=== PATIENT | female | born 1995 | race Hispanic/Latino ===

== ENCOUNTER 2021-07-30 23:30 | Emergency (ER) | payer OTHER ==
[2021-07-30 23:36] VITALS: BP 130/88
--- NOTE | 2021-07-31 01:21 | Emergency Department Report ---
ED Abdominal Pain HPI - General Chief Complaint: Wound/Laceration Stated Complaint: ABD PAIN Source: patient Mode of arrival: Ambulatory Limitations: No Limitations - History of Present Illness Initial Comments: Patient is a A0 two 26-year-old female who is approximately 20 weeks gestation who presented to the ED with swelling mass in the umbilical area with pain for the last 2 weeks. Patient states that the pain is worsened especially in the last 3 days as a result of heavy lifting. Patient denies vaginal bleeding, nausea, vomiting, fever, chills, diarrhea, dizziness, syncope, chest pain or shortness of breath, back pain or traumatic injury. MD Complaint: abdominal pain (Umbilical ) -: Sudden, week(s) (2) Location: periumbilical Radiation: none Migration to: periumbilical Severity: mild Severity scale (0 -10): 3 Quality: cramping, aching, dull Consistency: constant Improves With: rest Worsens With: movement Associated Symptoms: denies other symptoms. denies: nausea, vomiting, diarrhea, fever, chills, dysuria, hematemesis, hematochezia, melena, hematuria, anorexia, syncope - Related Data Previous Rx's Medication Instructions Recorded Last Taken Type Acetaminophen [Tylenol] 500 mg PO Q6HR PRN #30 tablet 07/31/21 Unknown Rx ED Review of Systems ROS: Stated complaint: ABD PAIN Other details as noted in HPI Constitutional: denies: chills, fever Eyes: denies: eye pain, eye discharge, vision change ENT: denies: ear pain, throat pain Respiratory: denies: cough, shortness of breath, wheezing Cardiovascular: denies: chest pain, palpitations Endocrine: no symptoms reported Gastrointestinal: abdominal pain (Umbilical). denies: nausea, vomiting, diarrhea Genitourinary: denies: urgency, dysuria, discharge Musculoskeletal: denies: back pain, joint swelling, arthralgia Skin: denies: rash, lesions Neurological: denies: headache, weakness, paresthesias Psychiatric: denies: anxiety, depression Hematological/Lymphatic: denies: easy bleeding, easy bruising ED Past Medical Hx - Past Medical History Previous Medical History?: No - Surgical History Past Surgical History?: No - Medications Home Medications: Home Medications Medication Instructions Recorded Confirmed Last Taken Type Acetaminophen [Tylenol] 500 mg PO Q6HR PRN #30 tablet 07/31/21 Unknown Rx ED Physical Exam - General Limitations: No Limitations General appearance: alert, in no apparent distress - Head Head exam: Present: atraumatic, normocephalic, normal inspection - Eye Eye exam: Present: normal appearance, PERRL, EOMI Pupils: Present: normal accommodation - ENT ENT exam: Present: normal exam, normal orophraynx, mucous membranes moist, TM's normal bilaterally, normal external ear exam - Neck Neck exam: Present: normal inspection, full ROM - Respiratory Respiratory exam: Present: normal lung sounds bilaterally. Absent: respiratory distress, wheezes, chest wall tenderness, accessory muscle use, decreased breath sounds - Cardiovascular Cardiovascular Exam: Present: regular rate, normal rhythm, normal heart sounds. Absent: systolic murmur, diastolic murmur, rubs, gallop - GI/Abdominal GI/Abdominal exam: Present: soft, tenderness (Palpable mildly tender small reducible umbilical hernia), normal bowel sounds. Absent: guarding, rebound, hyperactive bowel sounds, hypoactive bowel sounds, organomegaly - Extremities Exam Extremities exam: Present: normal inspection, full ROM, normal capillary refill - Back Exam Back exam: Present: normal inspection, full ROM. Absent: tenderness, CVA tenderness (R), CVA tenderness (L), muscle spasm, paraspinal tenderness, vertebral tenderness - Neurological Exam Neurological exam: Present: alert, oriented X3, CN II-XII intact, normal gait, reflexes normal - Psychiatric Psychiatric exam: Present: normal affect, normal mood - Skin Skin exam: Present: warm, dry, intact, normal color. Absent: rash ED Course Vital Signs 07/30/21 23:32 Temperature 98.8 F Pulse Rate 87 Respiratory 16 Rate Blood Pressure 130/88 [Left] O2 Sat by Pulse 99 Oximetry ED Medical Decision Making - Medical Decision Making This is a A0 two 26-year-old female who is approximately 20 weeks gestation who presented to the ED with swelling mass in the umbilical area with pain for the last 2 weeks. Patient states that the pain is worsened especially in the last 3 days as a result of heavy lifting. In the ED, patient is alert and oriented x3 and is not in any distress. Patient is hemodynamically stable. Physical exam is remarkable for mildly tender umbilical hernia which is reducible. Patient being approximately 20 weeks gestation, was advised to minimize heavy lifting in order to minimize the pain. Patient was advised to take Tylenol as needed for pain. Patient was advised to follow-up with TECHNICAL DATA ANALYST physician in 5 to 7 days for reevaluation or return to the ED immediately if symptoms get worse. - Differential Diagnosis Umbilical hernia; abdominal pain; muscle strain Critical care attestation.: If time is entered above; I have spent that time in minutes in the direct care of this critically ill patient, excluding procedure time. ED Disposition Clinical Impression: Reducible umbilical hernia Abdominal pain Qualifiers: Abdominal location: periumbilical Qualified Code(s): R10.33 - Periumbilical pain Disposition: HOME / SELF CARE / HOMELESS Is pt being admited?: No Does the pt Need Aspirin: No Condition: Stable Instructions: Hernia, Adult, [id number], Abdominal Pain During , [id number] Additional Instructions: Your symptoms are likely due to the uncomplicated umbilical hernia which is palpable on exam. Therefore minimize heavy lifting or any physically straining activities in order to control her pain. Take Tylenol also if pain gets worse. Otherwise follow-up with your TECHNICAL DATA ANALYST physician in 5 to 7 days for reevaluation or return to the ED immediately if symptoms get worse. Prescriptions: Acetaminophen [Tylenol] 500 mg PO Q6HR PRN #30 tablet PRN Reason: Pain , Severe (7-10) Referrals: KATIANA SMITH MD [Staff Physician] - 3-5 Days Time of Disposition: 01:24 Print Language: TURKISH
== END 2021-07-31 02:05 | disposition home or self-care (01) ==
LOC: ED 23:30
DX: O26.892 Other specified pregnancy related conditions, second trimester (principal); K42.9 Umbilical hernia without obstruction or gangrene; Z3A.20 20 weeks gestation of pregnancy
CPT/HCPCS: 99282

== ENCOUNTER 2021-12-06 11:57 | Outpatient (CLI) | payer MEDICAID ==
[2021-12-06 13:29] LABS: Basophils % (Auto) 0.4 % (0.0-1.8); Eosinophils # (Auto) 0.2 K/mm3 (0.0-0.4); Eosinophils % (Auto) 1.8 % (0.0-4.3); Hematocrit 35.3 % (30.3-42.9); Hemoglobin 11.6 gm/dl (10.1-14.3); Lymphocytes # (Auto) 2.3 K/mm3 (1.2-5.4); Lymphocytes % (Auto) 19.9 % (13.4-35.0); Mean Corpuscular HGB Conc 33 % (30-34); Mean Corpuscular Volume 91 fl (79-97); Monocytes # (Auto) 0.7 K/mm3 (0.0-0.8); Platelet Count 242 K/mm3 (140-440); Red Blood Count 3.91 M/mm3 (3.65-5.03); Red Cell Distribution Width 13.7 % (13.2-15.2)
[2021-12-06 13:40] LABS: Alanine Aminotransferase 13 units/L (7-56); Albumin 3.1 g/dL (3.9-5); Blood Urea Nitrogen 8 mg/dL (7-17); Calcium 7.8 mg/dL (8.4-10.2); Hemolysis Index 20; Uric Acid 4.5 mg/dL (3.5-7.6)
[2021-12-06 13:41] LABS: BUN/Creatinine Ratio 16
[2021-12-06 14:50] VITALS: BP 119/76
--- NOTE | 2021-12-06 15:07 | Ultrasound Report ---
ULTRASOUND OBSTETRIC LIMITED ULTRASOUND BIOPHYSICAL PROFILE INDICATION / CLINICAL INFORMATION: Decreased FM and elevated B/P. Clinical Gestational Age (GA): 38.3 weeks.days COMPARISON: None available. FINDINGS: BREATHING MOVEMENT = 2 GROSS BODY MOVEMENT = 2 TONE = 2 QUALITATIVE AMNIOTIC FLUID VOLUME = 2 TOTAL BIOPHYSICAL SCORE = 8/8 HEART RATE (beats per minute): 129 through 170. AMNIOTIC FLUID INDEX (cm) = 8.7 cm (normal = 7-24 cm) PRESENTATION: Cephalic. ADDITIONAL FINDINGS: None. IMPRESSION: 1. Biophysical Score = 8/8 2. RUBEN 8.7 cm. Signer Name: Kevin Liu MD Signed: 12/06/2021 3:03 PM Workstation Name: [id number]
== END 2021-12-06 15:04 | disposition home or self-care (01) ==
LOC: TRG 11:57 → APU 11:58 → TRG 15:04
PROVIDERS: ATTEND Obstetrics & Gynecology
DX: O36.8130 Decreased fetal movements, third trimester, not applicable or unspecified (principal); Z3A.38 38 weeks gestation of pregnancy
CPT/HCPCS: 36415; 59025; 76815; 76819; 80053; 84550; 85025

== ENCOUNTER 2021-12-11 14:20 | Inpatient (IN) | payer MEDICAID ==
[2021-12-11] MEDS ORDERED: CARBOPROST TROMETHAMINE 250 MCG/1 ML INJ IM PRN (19:13)
[2021-12-11] MEDS ORDERED: OXYTOCIN 10 UNIT/1 ML INJ IM PRN (19:13)
[2021-12-11] MEDS ORDERED: TERBUTALINE 1 MG/1 ML INJ SUB-Q PRN (19:13)
[2021-12-11] MEDS ORDERED: miSOPROStol 200 MCG TAB PR PRN (19:13)
[2021-12-11] MEDS ORDERED: MINERAL OIL 30 ML ORAL LIQD PO PRN (19:13)
[2021-12-11] MEDS ORDERED: LIDOCAINE (2%) 20 MG/1 ML VIAL 20 ML MDV INFILTRATI ONE (19:13)
[2021-12-11] MEDS ORDERED: ACETAMINOPHEN 325 MG TAB PO PRN (19:13)
[2021-12-11] MEDS ORDERED: fentaNYL 100 MCG/2 ML INJ IV PRN (19:13)
[2021-12-11] MEDS ORDERED: LOPERAMIDE 2 MG CAP PO PRN (19:13)
[2021-12-11] MEDS ORDERED: METHYLERGONOVINE MALEATE 0.2 MG/ML VIAL IM PRN (19:13)
[2021-12-11] MEDS ORDERED: BUTORPHANOL 2 MG/1 ML INJ IV PRN (19:13)
[2021-12-11] MEDS ORDERED: ePHEDrine SULFATE 50 MG/1 ML INJ IV PRN (19:13)
--- NOTE | 2021-12-11 19:28 | History and Physical Report ---
History of Present Illness Date of examination: 12/11/21 Date of admission: 12/11/21 14:28 Chief complaint: Decreased movements. History of present illness: . Vaginal delivery x 1. 39+1 wks. HOSSEIN 12/17/21. Past History Past Medical History: no pertinent history - Obstetrical History Expected Date of Delivery: 12/17/21 Actual Gestation: 39 Week(s) 1 Day(s) : 2 Para: 1 Medications and Allergies Allergies Allergy/AdvReac Type Severity Reaction Status Date / Time No Known Allergies Allergy Verified 12/06/21 12:21 Home Medications Medication Instructions Recorded Confirmed Last Taken Type Acetaminophen [Tylenol] 500 mg PO Q6HR PRN #30 tablet 07/31/21 Unknown Rx Active Meds: Active Medications Acetaminophen (Acetaminophen 325 Mg Tab) 650 mg PO Q4H PRN PRN Reason: Pain, Mild (1-3) Butorphanol Tartrate (Butorphanol 2 Mg/1 Ml Inj) 1 mg IV Q2H PRN PRN Reason: Pain, Moderate(4-6) LABOR PAIN Carboprost Tromethamine (Carboprost Tromethamine 250 Mcg/1 Ml Inj) 250 mcg IM ONCE PRN PRN Reason: Uterine Bleeding Ephedrine Sulfate (Ephedrine Sulfate 50 Mg/1 Ml Inj) 10 mg IV Q2M PRN PRN Reason: Hypotension Fentanyl (Fentanyl 100 Mcg/2 Ml Inj) 100 mcg IV Q2H PRN PRN Reason: Pain,Severe (7-10) LABOR PAIN Oxytocin/Sodium Chloride (Pitocin/Ns 30 Unit/500ml) 30 units in 500 mls @ 2 mls/hr IV TITR KARINA; Protocol Lactated Ringer's (Lactated Ringers) 1,000 mls @ 125 mls/hr IV DIRECT KARINA Oxytocin/Sodium Chloride (Pitocin/Ns 30 Unit/500ml) 30 units in 500 mls @ 40 mls/hr IV TITR KARINA; Protocol Lidocaine (Lidocaine (2%) 20 Mg/1 Ml Vial 20 Ml Mdv) 20 ml INFILTRATI ONCE ONE Stop: 12/11/21 19:14 Loperamide HCl (Loperamide 2 Mg Cap) 2 mg PO ONCE PRN PRN Reason: give with Hemabate Methylergonovine Maleate (Methylergonovine Maleate 0.2 Mg/Ml Vial) 0.2 mg IM ONCE PRN PRN Reason: Uterine Bleeding Mineral Oil (Mineral Oil 30 Ml Oral Liqd) 30 ml PO QHS PRN PRN Reason: Constipation Misoprostol (Misoprostol 200 Mcg Tab) 800 mcg OR ONCE PRN PRN Reason: Uterine Bleeding Oxytocin (Oxytocin 10 Unit/1 Ml Inj) 10 unit IM ONCE PRN PRN Reason: Uterine Bleeding Terbutaline Sulfate (Terbutaline 1 Mg/1 Ml Inj) 0.25 mg SUB-Q ONCE PRN PRN Reason: Hyperstimulation/Hypertonicity Review of Systems All systems: negative - Vital Signs Vital signs: Vital Signs Pulse Pulse Ox 113 H 98 12/11/21 14:43 12/11/21 14:43 Temp Pulse Resp BP Pulse Ox 98.2 F 82 18 125/83 99 12/11/21 15:18 12/11/21 19:23 12/11/21 15:18 12/11/21 15:18 12/11/21 19:23 - Physical Exam Breasts: Positive: deferred Cardiovascular: Normal S1, Normal S2 Lungs: Positive: Normal air movement Abdomen: Positive: soft, distention, normal bowel sounds Genitourinary (Female): Positive: normal external genitalia, normal perenium Vulva: both: normal Vagina: Positive: normal moisture. Negative: discharge Cervix: Negative: lesion, discharge Uterus: Positive: enlarged, normal contour Anus/Rectum: Positive: normal perianal skin, heme negative. Negative: rectal mass, hemorrhoids Extremities: Positive: normal Deep Tendon Reflex Grade: Normal +2 - Obstetrical FHR: auscultation normal Cervical Dilatation: 2.5 Cervical Effacement Percentage: 80 (Rectal contents impede exam.) station: 0-1 Uterine Contraction Pattern: Absent Results All other labs normal. Assessment and Plan - Patient Problems (1) with 39 completed weeks gestation Current Visit: Yes Status: Acute (2) Decreased fetus movements affecting management of mother in third trimester Current Visit: Yes Status: Acute Qualifiers: Fetus number: single or unspecified fetus Qualified Code(s): O36.8130 - Decreased movements, third trimester, not applicable or unspecified Plan to address problem: Admit for observation and induction of labor.
[2021-12-11 19:30] LABS: Hematocrit 34.7 % (30.3-42.9); Hemoglobin 11.7 gm/dl (10.1-14.3); Mean Corpuscular HGB Conc 34 % (30-34); Mean Corpuscular Volume 91 fl (79-97); Platelet Count 224 K/mm3 (140-440); Red Blood Count 3.84 M/mm3 (3.65-5.03); Red Cell Distribution Width 13.8 % (13.2-15.2)
[2021-12-11] MEDS ORDERED: OXYTOCIN DRIP 30 UNITS/500 ML BAG IV SCH ×2 (20:00)
[2021-12-11] MEDS: LACTATED RINGERS 1,000 ML IV SCH ×2 (21:53→23:03)
[2021-12-12] MEDS: LACTATED RINGERS 1,000 ML IV SCH (09:32)
--- NOTE | 2021-12-12 10:17 | Anesthesia Consultation ---
Anesthesia Consult and Med Hx Date of service: 12/12/21 - Airway Anesthetic Teeth Evaluation: Good ROM Head & Neck: Adequate Mental/Hyoid Distance: Adequate Mallampati Class: Class II Intubation Access Assessment: Probably Good - Pulmonary Exam CTA: Yes - Cardiac Exam Cardiac Exam: RRR - Pre-Operative Health Status ASA Pre-Surgery Classification: ASA2 Proposed Anesthetic Plan: Epidural - Pulmonary Hx Asthma: No COPD: No Hx Pneumonia: No - Cardiovascular System Hx Hypertension: No - Central Nervous System Hx Seizures: No Hx Psychiatric Problems: No - Endocrine Hx Renal Disease: No Hx End Stage Renal Disease: No Hx Hypothyroidism: No Hx Hyperthyroidism: No - Hematic Hx Anemia: No Hx Sickle Cell Disease: No - Other Systems Hx Alcohol Use: No
[2021-12-12] MEDS ORDERED: NALOXONE 2 MG/2 ML INJ IV PRN (10:30)
[2021-12-12] MEDS ORDERED: ePHEDrine SULFATE 50 MG/1 ML INJ IV PRN (10:30)
[2021-12-12] MEDS ORDERED: fentaNYL-BUPIV 2 MCG/ML-0.125% 200 MCG/100 ML BAG EPIDURAL SCH (11:00)
--- NOTE | 2021-12-12 12:07 | Event Note ---
Date: 12/12/21 Stable. 3-4 cm dilated, 80%, 0-1station. ARM done, clear fluid. IUPC placed.
[2021-12-12] MEDS ORDERED: BUPIVACAINE/PF (0.25%) 2.5 MG/ML 10 ML VIAL INFILTRATI ONE (13:32)
[2021-12-12] MEDS ORDERED: LANOLIN/ZINC/DIMETHICONE (LANSINOH) 7 GM TP PRN (16:28)
[2021-12-12] MEDS ORDERED: PROMETHAZINE 25 MG TAB PO PRN ×2 (16:28→16:34)
[2021-12-12] MEDS ORDERED: ONDANSETRON 4 MG/2 ML INJ IV PRN ×2 (16:28→16:34)
[2021-12-12] MEDS ORDERED: MAGNESIUM HYDROXIDE (MOM) ORAL LIQD UDC PO PRN ×2 (16:28→16:34)
[2021-12-12] MEDS ORDERED: PROMETHAZINE 25 MG RECT SUPP PR PRN ×2 (16:28→16:34)
[2021-12-12] MEDS ORDERED: KETOROLAC 30 MG/1 ML INJ IV PRN ×2 (16:28→16:34)
[2021-12-12] MEDS ORDERED: diphenhydrAMINE 25 MG CAP PO PRN ×2 (16:34→17:00)
[2021-12-12] MEDS ORDERED: ACETAMINOPHEN 325 MG TAB PO PRN ×2 (16:34→17:00)
[2021-12-12] MEDS ORDERED: HYDROcodone/ACETAMINOPHEN 5-325 MG TAB PO PRN (16:34)
--- NOTE | 2021-12-12 16:44 | Procedure Note ---
OB Delivery Note - Delivery Date of Delivery: 12/12/21 Surgeon: NIMCO LANDEROS Estimated blood loss: 200cc - Vaginal Delivery presentation: vertex Delivery position: OA Intrapartum events: none Delivery induction: oxytocin Delivery augmentation: rupture of membranes, pitocin Delivery monitor: external FHT, external uterine, internal FHT Route of delivery: Delivery placenta: spontaneous Delivery cord: 3 umbilical vessels Episiotomy: none Delivery laceration: none Anesthesia: epidural - Infant A at 1 minute: 8 at 5 minutes: 9 (7 lbs 9oz.)
[2021-12-12] MEDS ORDERED: WITCH HAZEL/ GLYCERIN PAD TP PRN (17:00)
[2021-12-12] MEDS ORDERED: IBUPROFEN 800 MG TAB PO SCH (17:00)
[2021-12-12] MEDS: HYDROcodone/ACETAMINOPHEN 5-325 MG TAB PO PRN (21:28)
[2021-12-12] MEDS: DOCUSATE SODIUM 100 MG CAP PO SCH (21:28)
[2021-12-12] MEDS: IBUPROFEN 800 MG TAB PO SCH (22:11)
[2021-12-13] MEDS: HYDROcodone/ACETAMINOPHEN 5-325 MG TAB PO PRN ×3 (02:15→16:55)
[2021-12-13 04:07] LABS: Hematocrit 31.6 % (30.3-42.9); Hemoglobin 10.4 gm/dl (10.1-14.3)
[2021-12-13] MEDS: IBUPROFEN 800 MG TAB PO SCH ×2 (05:50→12:23)
--- NOTE | 2021-12-13 09:20 | Progress Note ---
Assessment and Plan - Patient Problems (1) with 39 completed weeks gestation Current Visit: Yes Status: Resolved (2) Decreased fetus movements affecting management of mother in third trimester Current Visit: Yes Status: Resolved Qualifiers: Fetus number: single or unspecified fetus Qualified Code(s): O36.8130 - Decreased movements, third trimester, not applicable or unspecified (3) Status post vaginal delivery Current Visit: Yes Status: Acute Plan to address problem: Stable and would like to go home bernice. Subjective - Subjective Date of service: 12/13/21 Principal diagnosis: Status post vaginal delivery day 1. Interval history: . Vaginal delivery x 1. 39+1 wks. HOSSEIN 12/17/21. Delivered 12/12/2021. . Patient reports: appetite normal, voiding normally, pain well controlled, ambulating normally [place]: doing well Objective - Vital Signs Latest vital signs: Vital Signs Temp Pulse Resp BP Pulse Ox Pulse Ox 12/13/21 08:23 97 12/13/21 07:39 97.6 F 76 16 107/57 98 12/13/21 06:48 18 12/13/21 05:50 18 12/13/21 03:13 18 12/13/21 02:15 18 12/12/21 23:46 98.4 F 86 20 114/61 97 12/12/21 23:11 18 12/12/21 22:28 18 12/12/21 22:11 18 12/12/21 21:28 18 12/12/21 21:08 100 12/12/21 20:51 98.7 F 82 18 115/67 97 12/12/21 19:01 94 H 117/69 12/12/21 18:42 98.0 F 12/12/21 17:05 71 90/51 12/12/21 17:01 65 99 12/12/21 16:56 71 100 12/12/21 16:55 83 100/52 12/12/21 16:51 85 98 12/12/21 16:46 76 99 12/12/21 16:41 92 H 95 12/12/21 16:40 78 99/52 12/12/21 16:36 83 98 12/12/21 16:31 86 98 12/12/21 16:26 73 97 12/12/21 16:25 75 102/49 12/12/21 16:21 80 96 12/12/21 16:16 81 97 12/12/21 16:11 80 97 12/12/21 16:10 83 108/62 12/12/21 16:06 86 97 12/12/21 16:01 89 97 12/12/21 15:57 76 98/49 12/12/21 15:56 77 97 12/12/21 15:55 187 H 69/38 12/12/21 15:51 93 H 96 12/12/21 15:46 77 96 12/12/21 15:41 78 96 12/12/21 15:40 82 100/49 12/12/21 15:36 119 H 100 12/12/21 15:31 94 H 98 12/12/21 15:26 65 80 L 12/12/21 15:24 63 88 12/12/21 15:21 70 98 12/12/21 15:19 72 91 12/12/21 15:16 119 H 98 12/12/21 15:13 62 94/46 12/12/21 15:11 85 97 12/12/21 15:06 68 99 12/12/21 15:01 75 98 12/12/21 14:56 55 L 97 12/12/21 14:51 59 L 98 12/12/21 14:46 55 L 97 12/12/21 14:42 52 L 100/53 12/12/21 14:41 53 L 98 12/12/21 14:36 55 L 97 12/12/21 14:31 56 L 96 12/12/21 14:26 54 L 97 12/12/21 14:21 60 96 12/12/21 14:17 55 L 95/54 12/12/21 14:16 58 L 97 12/12/21 14:11 64 88/50 96 12/12/21 14:06 72 96 12/12/21 14:01 68 97 12/12/21 13:56 68 97 12/12/21 13:51 71 97 12/12/21 13:46 68 97 12/12/21 13:42 68 94/54 12/12/21 13:41 70 99 12/12/21 13:40 98.1 F 12/12/21 13:36 71 100 12/12/21 13:31 97 H 100 12/12/21 13:26 78 100 04/20/22 13:21 79 100 12/12/21 13:16 80 100 12/12/21 13:12 74 106/61 12/12/21 13:11 74 100 12/12/21 13:06 91 H 100 12/12/21 13:01 92 H 100 12/12/21 12:56 77 100 12/12/21 12:51 92 H 100 12/12/21 12:46 78 99 12/12/21 12:42 75 107/56 12/12/21 12:41 69 99 12/12/21 12:36 83 99 12/12/21 12:31 71 99 12/12/21 12:26 67 100 12/12/21 12:21 73 99 12/12/21 12:16 58 L 99 12/12/21 12:11 61 96/54 98 12/12/21 12:06 62 99 12/12/21 12:01 79 96 12/12/21 11:56 57 L 99 12/12/21 11:51 61 97 12/12/21 11:49 68 90/55 12/12/21 11:46 55 L 97 12/12/21 11:41 58 L 94/53 98 12/12/21 11:36 98.4 F 60 98 12/12/21 11:31 67 97 12/12/21 11:26 63 97 12/12/21 11:21 59 L 97 12/12/21 11:16 72 97 12/12/21 11:12 69 109/60 12/12/21 11:11 63 97 12/12/21 11:06 62 97 12/12/21 11:01 60 95 12/12/21 10:56 64 98 12/12/21 10:51 58 L 97 12/12/21 10:46 59 L 97 12/12/21 10:41 96 H 97 12/12/21 10:40 63 115/57 12/12/21 10:38 75 112/59 12/12/21 10:36 58 L 116/65 98 12/12/21 10:34 77 123/74 12/12/21 10:33 85 115/71 12/12/21 10:31 93 H 100 12/12/21 10:30 77 130/63 12/12/21 10:28 61 126/63 12/12/21 10:27 68 146/66 12/12/21 10:26 68 100 12/12/21 10:24 61 127/83 12/12/21 10:21 91 H 98 12/12/21 10:16 74 99 12/12/21 10:11 75 99 12/12/21 10:06 65 99 12/12/21 10:01 70 99 12/12/21 09:56 72 99 12/12/21 09:51 77 99 12/12/21 09:46 59 L 99 12/12/21 09:41 61 99 12/12/21 09:36 70 99 12/12/21 09:32 98.1 F 12/12/21 09:31 59 L 99 12/12/21 09:26 68 99 12/12/21 09:21 77 99 Intake and Output 12/12/21 12/13/21 12/13/21 23:59 07:59 15:59 Intake Total 480 Output Total 100 1300 Balance -100 -820 Intake: Oral 480 Output: Urine 100 1300 Indwelling Catheter 100 Void 1300 Other: Total, Intake Amount 480 Total, Output Amount 100 400 - Exam Lungs: Present: Normal air movement Abdomen: Present: normal appearance Uterus: Present: normal, firm Extremities: Present: normal Deep Tendon Reflex Grade: Normal +2
--- NOTE | 2021-12-13 09:26 | Discharge Summary ---
Providers - Providers Date of Admission: 12/11/21 14:28 Date of discharge: 12/13/21 Attending physician: NIMCO LANDEROS MD Primary care physician: NIMCO LANDEROS MD Hospitalization Reason for admission: induction of labor, IUP at term, other (Decreased movements.) Delivery: Episiotomy: none Laceration: none Other procedures: none complications: none Discharge diagnosis: IUP at term delivered baby: male Condition at discharge: Good Disposition: 30 STILL A PATIENT - Discharge Diagnoses (1) with 39 completed weeks gestation Status: Resolved (2) Decreased fetus movements affecting management of mother in third trimester Status: Resolved Qualifiers: Fetus number: single or unspecified fetus Qualified Code(s): O36.8130 - Decreased movements, third trimester, not applicable or unspecified (3) Status post vaginal delivery Status: Acute Plan - Provider Discharge Summary Activity: routine, no sex for 6 weeks, no heavy lifting 4 weeks, no strenuous exercise Diet: routine Instructions: routine Additional instructions: [] Smoking cessation referral if applicable(refer to patient education folder for contact #) [] Refer to [facility] Booklet Call your doctor immediately for: * Fever > 100.5 * Heavy vaginal bleeding ( >1 pad per hour) * Severe persistent headache * Shortness of breath * Reddened, hot, painful area to leg or breast * Drainage or odor from incision. * Keep incision clean and dry at all times and follow doctor's instructions regarding bathing/showering - Follow up plan Follow up: NIMCO LANDEROS MD [Primary Care Provider] - 7 Days
[2021-12-13] MEDS ORDERED: PRENATAL VIT27-FE FUMARATE-FOLIC ACID VIT TAB PO SCH ×2 (10:00)
[2021-12-13] MEDS: DOCUSATE SODIUM 100 MG CAP PO SCH (10:11)
--- NOTE | 2021-12-13 11:01 | Post Anesthesia Evaluation ---
- Post Anesthesia Evaluation Patient Participated: Yes Airway Patent: Yes Stable Respiratory Function: Yes Nausea/Vomiting: No Temp > 96.8F: Yes Pain Manageable: Yes Adequeate Hydration: Yes Anesthesia Complications: No Block Receding Appropriately: Yes
[2021-12-13] MEDS ORDERED: TETANUS,DIPH,PERTUSS(ACELL) VACCINE 0.5 ML SYRINGE IM ONE (19:15)
[2021-12-13] MEDS ORDERED: MEASLES, MUMPS & RUBELLA 12,500 UNIT/0.5 ML VACCINE SUB-Q ONE (19:15)
[2021-12-14 00:17] VITALS: BP 122/75
== END 2021-12-13 21:00 | disposition home or self-care (01) | DRG 775 ==
LOC: TRG 14:20 → LD 14:28 → OB 12-12 20:58
PROVIDERS: ADMIT Obstetrics & Gynecology; ATTEND Obstetrics & Gynecology
PROC: 10E0XZZ Delivery of Products of Conception, External Approach (ICD-10-PCS; principal; 2021-12-12)
PROC: 10907ZC Drainage of Amniotic Fluid, Therapeutic from Products of Conception, Via Natural or Artificial Opening (ICD-10-PCS; 2021-12-12)
PROC: 10H07YZ Insertion of Other Device into Products of Conception, Via Natural or Artificial Opening (ICD-10-PCS; 2021-12-12)
PROC: 3E033VJ Introduction of Other Hormone into Peripheral Vein, Percutaneous Approach (ICD-10-PCS; 2021-12-12)
PROC: 3E0234Z Introduction of Serum, Toxoid and Vaccine into Muscle, Percutaneous Approach (ICD-10-PCS; 2021-12-13)
PROC: 3E0R3BZ Introduction of Anesthetic Agent into Spinal Canal, Percutaneous Approach (ICD-10-PCS; 2021-12-13)
PROC: 00HU33Z Insertion of Infusion Device into Spinal Canal, Percutaneous Approach (ICD-10-PCS; 2021-12-13)
DX: O36.8130 Decreased fetal movements, third trimester, not applicable or unspecified (principal); Z37.0 Single live birth; Z3A.39 39 weeks gestation of pregnancy; Z20.822 Contact with and (suspected) exposure to COVID-19; Z23 Encounter for immunization
CPT/HCPCS: 36415; 59025; 85014; 85018; 85027; 86592; 86850; 86900; 86901; 90707; 90715; 96360; G0378; J3490; J2590; J7120; U0003

== ENCOUNTER 2021-12-20 14:57 | Emergency (ER) | payer MEDICAID ==
[2021-12-20 19:32] LABS: Bilirubin,Urine NEG (Negative); Blood,Urine LG (Negative); Color,Urine Red (Yellow)
[2021-12-20 19:38] LABS: RBC,Urine > 182.0 /HPF (0.0-6.0); WBC,Urine > 182.0 /HPF (0.0-6.0)
[2021-12-20 19:39] LABS: HCG Qualitative,Urine Negative (Negative)
[2021-12-20 19:46] LABS: Hematocrit 37.6 % (30.3-42.9); Hemoglobin 12.3 gm/dl (10.1-14.3); Mean Corpuscular HGB Conc 33 % (30-34); Mean Corpuscular Volume 91 fl (79-97); Platelet Count 325 K/mm3 (140-440); Red Blood Count 4.13 M/mm3 (3.65-5.03); Red Cell Distribution Width 13.9 % (13.2-15.2)
[2021-12-20 19:54] LABS: INR 0.97 (0.87-1.13)
[2021-12-20 20:06] LABS: Alanine Aminotransferase 19 units/L (7-56); Albumin 3.6 g/dL (3.9-5); BUN/Creatinine Ratio 17; Blood Urea Nitrogen 10 mg/dL (7-17); Calcium 8.7 mg/dL (8.4-10.2); Hemolysis Index 6
--- NOTE | 2021-12-20 21:56 | Cat Scan Report ---
CT ABDOMEN AND PELVIS WITHOUT CONTRAST INDICATION / CLINICAL INFORMATION: abd pain; 8 days post . TECHNIQUE: Axial CT images were obtained through the abdomen and pelvis without IV contrast. All CT scans at this location are performed using CT dose reduction for ALARA by means of automated exposure control. COMPARISON: None available. FINDINGS: LOWER CHEST: No significant abnormality. AORTA / ARTERIES: No significant abnormality. IVC / VEINS: No significant abnormality. LYMPH NODES: No significant adenopathy. COLON: No significant abnormality. APPENDIX: No significant abnormality. STOMACH / SMALL BOWEL: No significant abnormality. PERITONEUM: No free fluid. No free air. No fluid collection. LIVER: No significant abnormality. GALLBLADDER: No significant abnormality. BILE DUCTS: No significant abnormality. PANCREAS: No significant abnormality. SPLEEN: No significant abnormality. ADRENALS: No significant abnormality. RIGHT KIDNEY / URETER: No significant abnormality. LEFT KIDNEY / URETER: No significant abnormality. URINARY BLADDER: No significant abnormality. REPRODUCTIVE ORGANS: There is a post gravid uterus. There is small amount of increased density within the endometrium, suggesting hemorrhage. SKELETAL SYSTEM: No significant abnormality. ADDITIONAL FINDINGS: There is a fat-containing periumbilical hernia. IMPRESSION: 1. Post gravid uterus with increased density within the endometrium suggesting hemorrhage. No evidenc e of intraperitoneal hemorrhage. 2. Fat-containing periumbilical hernia. Signer Name: Perez Zelaya DO Signed: 12/20/2021 9:52 PM Workstation Name: [id number]
[2021-12-20] MEDS ORDERED: cefTRIAXone/NS 1 GM/50 ML 1 GM/50 ML BAG IV ONE (22:29)
--- NOTE | 2021-12-20 22:54 | Emergency Department Report ---
ED General Adult HPI - General Chief complaint: Abdominal Pain Stated complaint: STOMACH PAIN/NAUSEA Time Seen by Provider: 12/20/21 19:07 Source: patient Mode of arrival: Ambulatory Limitations: No Limitations - History of Present Illness Initial comments: Patient presents with complaints of middle lower abdominal pain, sharp, non radiating, 5/10, not worsened or relieved by anything. Endorses nausea, denies vomiting. Last BM was today and formed. Endorses flatulence. Reports dysuria (burning on urination), frequency, urgency. Patient is 9 days post via vaginal delivery. Endorses scant clearing lochia. - Related Data Previous Rx's Medication Instructions Recorded Last Taken Type Acetaminophen [Tylenol] 500 mg PO Q6HR PRN #30 tablet 07/31/21 Unknown Rx Cefdinir 1 cap PO BID 7 Days #14 cap 12/20/21 Unknown Rx Allergies Allergy/AdvReac Type Severity Reaction Status Date / Time No Known Allergies Allergy Verified 12/06/21 12:21 ED Review of Systems ROS: Stated complaint: STOMACH PAIN/NAUSEA Other details as noted in HPI Comment: All other systems reviewed and negative Constitutional: denies: chills, fever ED Past Medical Hx - Past Medical History Hx Hypertension: No Hx Congestive Heart Failure: No Hx Diabetes: No Hx Deep Vein Thrombosis: No Hx Renal Disease: No Hx Sickle Cell Disease: No Hx Seizures: No Hx Asthma: No Hx COPD: No - Social History Smoking Status: Never Smoker Substance Use Type: None - Medications Home Medications: Home Medications Medication Instructions Recorded Confirmed Last Taken Type Acetaminophen [Tylenol] 500 mg PO Q6HR PRN #30 tablet 07/31/21 12/12/21 Unknown Rx Cefdinir 1 cap PO BID 7 Days #14 cap 12/20/21 Unknown Rx ED Physical Exam - General Limitations: No Limitations General appearance: alert, in no apparent distress - Head Head exam: Present: atraumatic, normocephalic - Eye Eye exam: Present: PERRL, EOMI - ENT ENT exam: Present: mucous membranes moist, other (airway patent) - Neck Neck exam: Present: other (supple; no JVD) - Respiratory Respiratory exam: Present: other (good air entry, nml I:E, CTAB, no use of CHRIS) - Cardiovascular Cardiovascular Exam: Present: regular rate. Absent: rubs, gallop - GI/Abdominal GI/Abdominal exam: Present: other (soft; tender to palpation in suprapubic region, RLQ, LLQ; no rebound tenderness of involuntary guarding) - Extremities Exam Extremities exam: Present: other (no overt pitting lower extremity edema; non tender calves; neg Luis's sign bilaterally) - Back Exam Back exam: Present: normal inspection. Absent: CVA tenderness (R), CVA tenderness (L) - Neurological Exam Neurological exam: Present: alert, oriented X3, CN II-XII intact. Absent: motor sensory deficit - Skin Skin exam: Present: warm, normal color ED Course Vital Signs 12/20/21 12/20/21 17:01 23:00 Temperature 98.8 F 99.6 F Pulse Rate 88 78 Respiratory 18 20 Rate Blood Pressure 117/84 Blood Pressure 119/68 [Right] O2 Sat by Pulse 96 100 Oximetry ED Medical Decision Making - Lab Data Result diagrams: 12/20/21 19:09 12/20/21 19:09 Laboratory Tests 12/20/21 12/20/21 12/20/21 19:09 19:09 19:09 WBC 10.0 RBC 4.13 Hgb 12.3 Hct 37.6 MCV 91 MCH 30 MCHC 33 RDW 13.9 Plt Count 325 PT INR Sodium Potassium Chloride Carbon Dioxide Anion Gap BUN Creatinine Estimated GFR BUN/Creatinine Ratio Glucose Calcium Total Bilirubin AST ALT Alkaline Phosphatase Total Protein Albumin Albumin/Globulin Ratio Amylase 32 Lipase 22 Urine Color Urine Turbidity Urine pH Ur Specific Carson Urine Protein Urine Glucose (UA) Urine Ketones Urine Blood Urine Nitrite Urine Bilirubin Urine Urobilinogen Ur Leukocyte Esterase Urine WBC (Auto) Urine RBC (Auto) U Epithel Cells (Auto) Urine WBC Clumps Urine Yeast (Budding) Urine HCG, Qual 12/20/21 12/20/21 12/20/21 19:09 19:09 Unknown WBC RBC Hgb Hct MCV MCH MCHC RDW Plt Count PT 13.9 INR 0.97 Sodium 140 Potassium 5.0 Chloride 106.7 Carbon Dioxide 21 L Anion Gap 17 BUN 10 Creatinine 0.6 Estimated GFR > 60 BUN/Creatinine Ratio 17 Glucose 80 Calcium 8.7 Total Bilirubin 0.30 AST 17 ALT 19 Alkaline Phosphatase 65 Total Protein 6.3 Albumin 3.6 L Albumin/Globulin Ratio 1.3 Amylase Lipase Urine Color Red Urine Turbidity Cloudy Urine pH 7.0 Ur Specific Carson 1.017 Urine Protein 100 mg/dl Urine Glucose (UA) Neg Urine Ketones Neg Urine Blood Lg Urine Nitrite Neg Urine Bilirubin Neg Urine Urobilinogen 4.0 Ur Leukocyte Esterase Lg Urine WBC (Auto) > 182.0 H Urine RBC (Auto) > 182.0 U Epithel Cells (Auto) 1.0 Urine WBC Clumps 3+ Urine Yeast (Budding) 3+ Urine HCG, Qual Negative CT abd/pelvis: no acute intraabdominal process - Medical Decision Making diff dz: likely 2/2 UTI/developing pyelonephritis. Pre-eclampsia unlikely (nml BPs). Endometritis also less likely. Appendicitis, SBO and other acute surgical abdomen ruled out @ this time. Critical care attestation.: If time is entered above; I have spent that time in minutes in the direct care of this critically ill patient, excluding procedure time. ED Disposition Clinical Impression: Urinary tract infection, Status post vaginal delivery Disposition: 01 HOME / SELF CARE / HOMELESS Is pt being admited?: No Does the pt Need Aspirin: No Condition: Stable Instructions: Urinary Tract Infection, Adult, [id number], Abdominal Pain (ED) Additional Instructions: Follow up with Dr. Trejo within 2 - 3 days. Return to the ER if your symptoms worsen. Prescriptions: Cefdinir 1 cap PO BID 7 Days #14 cap Referrals: PRIMARY CARE, [Primary Care Provider] - 3-5 Days Time of Disposition: 22:51
[2021-12-20 23:02] VITALS: BP 119/68
[2021-12-21 00:56] LABS: Basophils % (Manual) 0 % (0.0-1.8); Total Cells Counted 100
[2021-12-21 00:57] LABS: Large Platelets Few; Platelet Estimate Consistent w Auto; RBC Morphology Normal
== END 2021-12-20 23:01 | disposition home or self-care (01) ==
LOC: ED 14:57
DX: O90.9 Complication of the puerperium, unspecified (principal); N39.0 Urinary tract infection, site not specified
CPT/HCPCS: 36415; 74176; 80053; 81001; 81025; 82150; 83690; 85007; 85025; 85610; 99284

== ENCOUNTER 2022-02-08 07:38 | Day surgery (SDC) | payer MEDICAID ==
[2022-02-08] MEDS ORDERED: LACTATED RINGERS 1,000 ML ONE ×2 (08:21→11:36)
[2022-02-08] MEDS ORDERED: HYDROmorphone 0.5 MG/0.5 ML INJ IV PRN ×2 (08:40)
[2022-02-08] MEDS ORDERED: MAGNESIUM OXIDE 400 MG TAB PO NR (08:40)
[2022-02-08] MEDS ORDERED: ACETAMINOPHEN 500 MG TAB PO NR (08:40)
[2022-02-08] MEDS ORDERED: fentaNYL 100 MCG/2 ML INJ IV NR (08:40)
[2022-02-08] MEDS ORDERED: ONDANSETRON 4 MG/2 ML INJ IV PRN (08:40)
--- NOTE | 2022-02-08 08:42 | Anesthesia Day of Surgery ---
Anesthesia Day of Surgery - Day of Surgery Patient Examined: Yes Patient H&P Reviewed: Yes Patient is NPO: Yes
--- NOTE | 2022-02-08 08:42 | Anesthesia Consultation ---
Anesthesia Consult and Med Hx Date of service: 02/08/22 - Airway Anesthetic Teeth Evaluation: Good ROM Head & Neck: Adequate Mental/Hyoid Distance: Adequate Mallampati Class: Class II Intubation Access Assessment: Good - Pre-Operative Health Status ASA Pre-Surgery Classification: ASA1 Proposed Anesthetic Plan: General Nerve Block: TAP - Pulmonary Hx Smoking: Yes (Former) Hx Asthma: No COPD: No Hx Pneumonia: No Hx Sleep Apnea: No - Cardiovascular System Hx Hypertension: No - Central Nervous System Hx Seizures: No Hx Psychiatric Problems: No - Gastrointestinal Hx Gastroesophageal Reflux Disease: No - Endocrine Hx Renal Disease: No Hx End Stage Renal Disease: No Hx Hypothyroidism: No Hx Hyperthyroidism: No - Hematic Hx Anemia: No Hx Sickle Cell Disease: No - Other Systems Hx Alcohol Use: No Hx Cancer: No
[2022-02-08] MEDS ORDERED: BUPIVACAINE/PF (0.25%) 2.5 MG/ML 30 ML VIAL INFILTRATI ONE (08:43)
[2022-02-08] MEDS ORDERED: dexAMETHasone 4 MG/ML VIAL ONE (08:44)
[2022-02-08] MEDS ORDERED: CELECOXIB 200 MG CAP PO NR (09:00)
[2022-02-08] MEDS ORDERED: MIDAZOLAM 2 MG/2 ML INJ IV NR (09:00)
[2022-02-08] MEDS ORDERED: LACTATED RINGERS 1,000 ML IV SCH (09:00)
[2022-02-08] MEDS ORDERED: ceFAZolin/STERILE WATER 2 GM/20 ML SYRINGE IV ONE (09:08)
[2022-02-08] MEDS ORDERED: ceFAZolin/Water 2 GM/20 ML 2 GM/20 ML SYRINGE IV ONE (09:15)
[2022-02-08] MEDS ORDERED: propofoL 200 MG/20 ML VIAL IV ONE (09:47)
[2022-02-08] MEDS ORDERED: LIDOCAINE MPF (2%) 20 MG/1 ML VIAL 5 ML ONE (09:47)
[2022-02-08] MEDS ORDERED: ROCURONIUM 50 MG/5 ML INJ IV ONE (09:47)
[2022-02-08] MEDS ORDERED: KETAMINE/STERILE WATER 50 MG/ML SYRINGE ONE (10:07)
[2022-02-08] MEDS ORDERED: dexAMETHasone 20 MG/5 ML VIAL ONE (10:07)
[2022-02-08] MEDS ORDERED: ONDANSETRON 4 MG/2 ML INJ ONE (10:07)
[2022-02-08] MEDS ORDERED: KETOROLAC 30 MG/1 ML INJ ONE (10:07)
[2022-02-08] MEDS ORDERED: WATER FOR IRRIG STERILE 1,500 ML BOTTLE IR ONE (10:48)
[2022-02-08] MEDS ORDERED: GLYCOPYRROLATE 0.4 MG/2 ML INJ ONE (11:38)
[2022-02-08] MEDS ORDERED: NEOSTIGMINE 10MG/10 ML INJ MDV ONE (11:38)
--- NOTE | 2022-02-08 11:52 | Short Stay Summary ---
Short Stay Documentation Date of service: 02/08/22 - History Principal diagnosis: ventral hernia H&P: obtained from office - Allergies and Medications Current Medications: Allergies No Known Allergies Allergy (Verified 01/31/22 16:33) Home Medications Medication Instructions Recorded Confirmed Last Taken Type Vit-Fe Fumar-FA [ 1 tab PO QDAY 01/31/22 01/31/22 Unknown History Vitamin] Active Medications Acetaminophen (Acetaminophen 500 Mg Tab) 1,000 mg PO ONCE NR Stop: 02/08/22 12:00 Last Admin: 02/08/22 09:00 Dose: 1,000 mg Celecoxib (Celecoxib 200 Mg Cap) 400 mg PO PREOP NR Stop: 02/08/22 12:00 Last Admin: 02/08/22 09:00 Dose: 400 mg Fentanyl (Fentanyl 100 Mcg/2 Ml Inj) 100 mcg IV ONCE NR Stop: 02/08/22 12:00 Last Admin: 02/08/22 09:28 Dose: 100 mcg Hydromorphone HCl (Hydromorphone 0.5 Mg/0.5 Ml Inj) 0.5 mg IV Q10MIN PRN PRN Reason: Pain , Severe (7-10) Stop: 02/08/22 20:00 Hydromorphone HCl (Hydromorphone 0.5 Mg/0.5 Ml Inj) 0.25 mg IV Q10MIN PRN PRN Reason: Pain, Moderate (4-6) Stop: 02/08/22 20:00 Lactated Ringer's (Lactated Ringers) 1,000 mls @ 125 mls/hr IV DIRECT KARINA Last Admin: 02/08/22 08:45 Dose: 125 mls/hr Magnesium Oxide (Magnesium Oxide 400 Mg Tab) 400 mg PO ONCE NR Stop: 02/08/22 12:00 Last Admin: 02/08/22 09:00 Dose: 400 mg Methocarbamol (Methocarbamol 750 Mg Tab) 1,500 mg PO ONCE NR Stop: 02/08/22 12:00 Last Admin: 02/08/22 09:00 Dose: 1,500 mg Midazolam HCl (Midazolam 2 Mg/2 Ml Inj) 2 mg IV PREOP NR Stop: 02/08/22 23:59 Last Admin: 02/08/22 09:28 Dose: 2 mg Midazolam HCl (Midazolam 2 Mg/2 Ml Inj) 2 mg IV ONCE ONE Stop: 02/08/22 12:01 Ondansetron HCl (Ondansetron 4 Mg/2 Ml Inj) 4 mg IV ONCE PRN PRN Reason: Nausea And Vomiting Stop: 02/08/22 12:00 - Brief post op/procedure progress note Date of procedure: 02/08/22 Pre-op diagnosis: ventral hernia Post-op diagnosis: same Procedure: robotic assisted ventral hernia repair with mesh Anesthesia: GETA, other (TAP block) Findings: 3 cm supraumbilical ventral hernia with incarcerated preperionteal fat. Adhesions from omentum to abdominal wall at inferior edge of hernia. \ Repaired with bard soft mesh 12cm Surgeon: RUSTY ZIEGLER Call Center Coordinator: ZAIRA SILVA Estimated blood loss: minimal Pathology: none Condition: stable - Hospital course Hospital course: Pt observed in PACU and discharged to home in stable condition - Disposition Condition at discharge: Good Disposition: 01 HOME / SELF CARE / HOMELESS Short Stay Discharge Plan Activity: other (no heavy lifting) Diet: regular Wound: open to air Additional Instructions: SEE PRINTED INSTRUCTIONS Follow up with: PRIMARY CARE, [Primary Care Provider] - 7 Days RUSTY ZIEGLER DO [Staff Physician] - 14 Days Prescriptions: Gabapentin 200 mg PO BID #6 cap Ibuprofen [Motrin 800 MG tab] 800 mg PO Q8HR PRN #30 tablet PRN Reason: Pain, Moderate (4-6) HYDROcodone/APAP 5-325 [[place] 5/325] 1 each PO Q6HR PRN #20 tablet PRN Reason: Pain , Severe (7-10)
[2022-02-08] MEDS ORDERED: MIDAZOLAM 2 MG/2 ML INJ IV ONE (12:00)
[2022-02-08] MEDS ORDERED: HYDROcodone/ACETAMINOPHEN 5-325 MG TAB ONE (12:58)
[2022-02-08] MEDS ORDERED: HYDROcodone/ACETAMINOPHEN 5-325 MG TAB PO PRN (12:59)
[2022-02-08 13:10] VITALS: BP 110/65
--- NOTE | 2022-02-08 17:21 | Post Anesthesia Evaluation ---
- Post Anesthesia Evaluation Patient Participated: Yes Airway Patent: Yes Stable Respiratory Function: Yes Nausea/Vomiting: No Temp > 96.8F: Yes Pain Manageable: Yes Adequeate Hydration: Yes Anesthesia Complications: No Block Receding Appropriately: Not Applicable Patient on Ventilator: No
--- NOTE | 2022-02-14 11:16 | Operative Report ---
Operative Report Operative Report: Date of procedure: 02/08/22 Pre-op diagnosis: ventral hernia Post-op diagnosis: same Procedure: Robotic assisted ventral hernia repair with mesh Anesthesia: GETA, other (TAP block) Findings: 3 cm supraumbilical ventral hernia with incarcerated preperionteal fat. Adhesions from omentum to abdominal wall at inferior edge of hernia. Repaired with bard soft mesh 12cm Surgeon: RUSTY ZIEGLER Highway Engineering Technician: ZAIRA SILVA Estimated blood loss: minimal Pathology: none Condition: stable Hospital course: Pt observed in PACU and discharged to home in stable condition HPI and indication: 26-year-old male who presents to surgery clinic for evaluation of a bulge above the umbilicus. This bulge has been present for some time and was reducible on exam. The patient was diagnosed with a hernia and it was recommended that the hernia be repaired. All risk, benefits, alternatives surgery discussed with patient questions answered. It was recommended that the hernia be repaired robotically. Alternatives such as open versus laparoscopic repair were also discussed. The patient was in agreement and consent obtained. Please see H&P in the chart for more details. Procedure in detail: The patient was identified in the preoperative area and taken back to the operating room and placed on the operating room table in supine position. After anesthesia was induced, both arms were tucked with all bony prominences padded appropriately. The abdomen was then prepped and draped in usual sterile fashion and a timeout was performed. The patient had a TAP block performed by anesthesia preoperatively. A miki incision was made in the left upper quadrant at Gu's point through which a Veress needle was in serted. The Veress needle position was confirmed using the saline drop test and the abdomen insufflated to 15 mmHg without incident. A 5 mm incision was made in the right upper quadrant through which a 5 mm Optiview trocar was placed under direct visualization. The abdomen was inspected and there was no underlying injury to any of the abdominal structures. The Veress needle was identified and removed. A 12 mm balloon trocar was placed in the right lateral abdomen and an 8 mm robotic trocar in the right lower quadrant under direct visualization. The 5 mm right upper quadrant trocar was replaced with an 8 mm robotic trocar under direct visualization. The patient was tilted to the left and the robot docked. A fenestrated bipolar was placed in arm #2 and a monopolar scissor in arm #1. The surgeon was then transferred to the console. There was an adhesion from omentum to abdominal wall at inferior edge of hernia. I first started by dissecting this adhesion. I then proceeded to create a preperitoneal flap to the right of the hernia defect. The peritoneum was scored to the right of the hernia defect using a monopolar scissor and a preperitoneal plane developed in an avascular plane. Using a combination of blunt dissection and cautery the plane superior to and inferior to the hernia was developed. There was preperitoneal fat incarcerated in the hernia which was carefully dissected and reduced. I then carried my preperitoneal dissection to the left aspect of the hernia defect in order to accommodate mesh placement. Once the dissection was complete the pocket was checked for hemostasis. The hernia defect was measured at appoximately 3cm in largest dimension. It was decided to fix the hernia with a 12cm cm Bard soft mesh. The mesh along with suture material placed into the abdomen by the care management assistant. First the hernia defect was closed using a 0 VLoc running stitch. The pressure in the abdomen was turned down to 8 mmHg for this. The mesh was then placed in the preperitoneal space and centered. The mesh was sutured into place in all 4 quadrants using interrupted 2-0 Vicryl stitches. The mesh laid flat in the preperitoneal space with adequate overlap of the hernia. The peritoneum was approximated using 3 0 VLoc running stitch. Defects in the peritoneum were approximated. The robot was then undocked and the surgeon scrubbed back in. The remainder of the case was performed laparoscopically. All sharp and suture material was removed under direct visualization. The 12 mm port was removed and the fascia closed with an interrupted 0-vicryl stitch using the Laurent Mann device.. The right lower quadrant port fascia was also closed with an interrupted 0 Vicryl stitch using the Laurent Mann device. The right upper quadrant port was removed and the abdomen desufflated. The skin incisions were closed with 4-0 Monocryl subcuticular stitches and skin glue. Once the glue was dry a 4 x 4 gauze was balled up and placed at the hernia site and secured with a Tegaderm. At the end of the case, all sponge, instrument, sharp counts were correct 2. An abdominal binder was applied to the patient. The patient was awoken from anesthesia, extubated and taken to PACU in stable condition.
== END 2022-02-08 13:39 | disposition home or self-care (01) ==
LOC: OR 07:38
PROVIDERS: ATTEND Surgery
DX: K43.6 Other and unspecified ventral hernia with obstruction, without gangrene (principal); K66.0 Peritoneal adhesions (postprocedural) (postinfection); Z87.891 Personal history of nicotine dependence; Z79.899 Other long term (current) drug therapy; Z90.49 Acquired absence of other specified parts of digestive tract; Z87.440 Personal history of urinary (tract) infections; Z80.1 Family history of malignant neoplasm of trachea, bronchus and lung; Z98.890 Other specified postprocedural states
CPT/HCPCS: 49653; 64488; 81025; C1781; J0690; J1100; J1170; J1815; J1885; J2250; J2405; J2704; J2710; J3010; J3490; J7120; S2900; 64450